=== PATIENT | male | born 1960 | race Caucasian/White ===

== ENCOUNTER 2017-11-08 20:34 | Emergency (ER) | payer MEDICAID, OTHER ==
[~2017-11-08] VITALS: Ht 172.7 cm; Wt 64.0 kg
[~2017-11-08 20:34] MED LIST: BENZ1TAB7 PO; CLON-527 PO; CYCL-394 PO; DIVA-81 PO; NAPR-56 PO; ZIPR80CA2 PO; [UNRECOGNIZED DRUG - CODE] PO
[2017-11-08] MEDS ORDERED: normal saline 1000ml 1,000 ML IV ONE (20:55)
[2017-11-08] MEDS ORDERED: diphenhydrAMINE 50 mg/ml inj IV ONE (21:00)
[2017-11-08] MEDS ORDERED: LORazepam 2 mg/ml vial IV ONE ×2 (21:00→21:45)
[2017-11-08 21:57] LABS: BASOPHILS % (AUTO) 0.3 % (0-1); EOSINOPHILS # (AUTO) 0.1 X10'3 (0-0.9); EOSINOPHILS % (AUTO) 0.7 % (0-6); HEMATOCRIT 38.5 % (42.0-52.0); HEMOGLOBIN 12.9 g/dl (14.0-17.9); LYMPHOCYTES # (AUTO) 2.9 X10'3 (1.1-4.8); LYMPHOCYTES % (AUTO) 26.7 % (21-51); MEAN CORPUSCULAR HEMOGLOBIN 31.6 PG (27.0-31.0); MEAN CORPUSCULAR HGB CONC 33.4 % (33.0-36.5); MEAN CORPUSCULAR VOLUME 94.7 FL (78-98); MEAN PLATELET VOLUME 7.9 FL (7.4-10.4); MONOCYTES % (AUTO) 9.1 % (2-12); NEUTROPHILS # (AUTO) 6.7 X10'3 (1.8-7.7); NEUTROPHILS % (AUTO) 63.2 % (42-75); PLATELET COUNT 189 X10'3 (140-440); RED BLOOD COUNT 4.07 X10'6 (4.70-6.10); RED CELL DISTRIBUTION WIDTH 12.4 % (11.5-14.5); WHITE BLOOD COUNT 10.7 X10'3 (4.5-11.0)
[2017-11-08 22:12] LABS: ALANINE AMINOTRANSFERASE 58 U/L (12-78); ALBUMIN 3.3 G/DL (3.4-5.0); ALBUMIN/GLOBULIN RATIO 0.9 (1.1-1.5); ALKALINE PHOSPHATASE 97 IU/L (46-116); ANION GAP 6 (8-16); ASPARTATE AMINO TRANSFERASE 52 U/L (10-37); BILIRUBIN,TOTAL 0.7 MG/DL (0.1-1.0); BLOOD UREA NITROGEN 19 MG/DL (7-18); BUN/CREATININE RATIO 24.4 (5.4-32.0); CALCIUM 8.2 MG/DL (8.5-10.1); CHLORIDE 108 MMOL/L (99-107); CREATININE 0.78 MG/DL (0.60-1.10); GLUCOSE 93 MG/DL (70-104); POTASSIUM 3.6 MMOL/L (3.5-5.1); SODIUM 143 MMOL/L (135-145); TOTAL CARBON DIOXIDE 29.4 MMOL/L (24-32); TOTAL PROTEIN 6.8 G/DL (6.4-8.2); eGFR > 90 ML/MIN
[2017-11-08 22:51] LABS: CLARITY,URINE Clear (Clear); COLOR,URINE Yellow (Yellow); GLUCOSE, URINE Negative (Neg); KETONES,URINE Trace mg/dl (Neg); LEUKOCYTE ESTERASE ,URINE Negative (Neg); NITRITES, URINE Negative (Neg); OCCULT BLOOD,URINE Negative (Neg); PH,URINE 5.5 (4.8-8.0); PROTEIN,URINE Negative (Neg)
[2017-11-08 23:02] LABS: UA COLLECTION TYPE STRAIGHT CATH
[2017-11-08 23:03] LABS: URINE AMPHETAMINE SCREEN POSITIVE (Neg); URINE BARBITUATE SCREEN NEGATIVE (Neg); URINE BENZODIAZEPINES SCREEN NEGATIVE (Neg); URINE CANNABINOID SCREEN POSITIVE (Neg); URINE COCAINE SCREEN NEGATIVE (Neg); URINE METHADONE SCREEN NEGATIVE (Neg); URINE OPIATE SCREEN POSITIVE (Neg); URINE PHENCYCLIDINE SCREEN NEGATIVE (Neg)
[2017-11-09 01:41] VITALS: BP 112/62
== END 2017-11-09 01:43 | disposition home or self-care (01) ==
LOC: ER 20:34
DX: F19.10 Other psychoactive substance abuse, uncomplicated (principal); G89.29 Other chronic pain; F17.210 Nicotine dependence, cigarettes, uncomplicated; R41.82 Altered mental status, unspecified; Z88.8 Allergy status to other drugs, medicaments and biological substances
CPT/HCPCS: 36415; 70450; 80053; 80305; 81003; 85025; 96361; 96374; 96375; 96376; 99285; A4353; J1200; J2060; J7030; L0172

== ENCOUNTER 2017-11-22 18:23 | Inpatient (IN) | payer MEDICAID, OTHER ==
[~2017-11-22] VITALS: Ht 180.3 cm; Wt 69.4 kg
[2017-11-22] MEDS ORDERED: vancomycin/NS 1 GM ADD-VANTAGE 250 ML IV ONE (21:55)
[2017-11-22] MEDS ORDERED: HYDROmorphone 1 mg/ml syringe IV PRN (21:55)
[2017-11-22] MEDS ORDERED: piperacillin/tazo 3.375gm/50ml 50 ML IV ONE (21:55)
[2017-11-22] MEDS ORDERED: iohexol 300mg/ml 100ml inj. ONE (22:18)
[2017-11-22 22:24] LABS: BASOPHILS % (AUTO) 0.1 % (0-1); EOSINOPHILS # (AUTO) 0.2 X10'3 (0-0.9); EOSINOPHILS % (AUTO) 1.2 % (0-6); HEMOGLOBIN 13.2 g/dl (14.0-17.9); LYMPHOCYTES # (AUTO) 3.6 X10'3 (1.1-4.8); MEAN CORPUSCULAR HEMOGLOBIN 31.4 PG (27.0-31.0); MEAN CORPUSCULAR VOLUME 95.1 FL (78-98); MEAN PLATELET VOLUME 8.4 FL (7.4-10.4); MONOCYTES # (AUTO) 0.9 X10'3 (0-0.9); MONOCYTES % (AUTO) 6.1 % (2-12); NEUTROPHILS # (AUTO) 10.8 X10'3 (1.8-7.7); NEUTROPHILS % (AUTO) 69.6 % (42-75); PLATELET COUNT 250 X10'3 (140-440); RED BLOOD COUNT 4.21 X10'6 (4.70-6.10); RED CELL DISTRIBUTION WIDTH 12.7 % (11.5-14.5); WHITE BLOOD COUNT 15.6 X10'3 (4.5-11.0)
[2017-11-22 22:35] LABS: PARTIAL THROMBOPLASTIN TIME 29 SECONDS (22-32)
[2017-11-22 22:41] LABS: ANION GAP 4 (8-16); BLOOD UREA NITROGEN 18 MG/DL (7-18); BUN/CREATININE RATIO 26.9 (5.4-32.0); CALCIUM 8.4 MG/DL (8.5-10.1); CHLORIDE 103 MMOL/L (99-107); CREATININE 0.67 MG/DL (0.60-1.10); GLUCOSE 122 MG/DL (70-104); POTASSIUM 3.8 MMOL/L (3.5-5.1); SODIUM 136 MMOL/L (135-145); TOTAL CARBON DIOXIDE 28.6 MMOL/L (24-32); eGFR > 90 ML/MIN
[2017-11-22 22:42] LABS: ALANINE AMINOTRANSFERASE 62 U/L (12-78); ALBUMIN 2.9 G/DL (3.4-5.0); ALBUMIN/GLOBULIN RATIO 0.6 (1.1-1.5); ALKALINE PHOSPHATASE 136 IU/L (46-116); ASPARTATE AMINO TRANSFERASE 35 U/L (10-37); BILIRUBIN,TOTAL 0.3 MG/DL (0.1-1.0); TOTAL PROTEIN 7.9 G/DL (6.4-8.2)
[2017-11-22] MEDS ORDERED: NO HOME MEDS (23:54)
[2017-11-23] MEDS ORDERED: acetaminophen 325mg tablet PO PRN ×2 (00:50)
[2017-11-23] MEDS ORDERED: mag hydrox/Alum hydrox/simeth 30ml oral suspension PO PRN (00:50)
[2017-11-23] MEDS ORDERED: ondansetron/PF 4mg/2ml inj IV PRN (00:50)
[2017-11-23 02:00] VITALS: BP 124/66
[2017-11-23] MEDS: normal saline 1000ml 1,000 ML IV SCH ×2 (03:20→20:38)
[2017-11-23] MEDS ORDERED: piperacillin/tazo 3.375gm/50ml 50 ML IV ONE (04:43)
[2017-11-23] MEDS: piperacillin/tazo 3.375gm/50ml 50 ML IV SCH ×3 (04:52→20:35)
[2017-11-23 05:00] VITALS: BP 108/54
[2017-11-23 05:29] LABS: CLARITY,URINE CLEAR (Clear); COLOR,URINE YELLOW (Yellow); GLUCOSE, URINE NEGATIVE (Neg); KETONES,URINE NEGATIVE (Neg); LEUKOCYTE ESTERASE ,URINE NEGATIVE (Neg); NITRITES, URINE NEGATIVE (Neg); OCCULT BLOOD,URINE SMALL (Neg); PROTEIN,URINE NEGATIVE (Neg); UROBILINOGEN,URINE 0.2 E.U/dL (0.2-1.0)
[2017-11-23 05:33] LABS: UA COLLECTION TYPE CLN CATCH MIDSTREAM
[2017-11-23 05:34] LABS: BACTERIA,URINE FEW /HPF (Neg); SQUAMOUS EPITHELIAL CELL,UR FEW /LPF (FEW); WBC,URINE NONE SEEN /HPF (0-4)
[2017-11-23] MEDS: vancomycin/NS 1 GM ADD-VANTAGE 250 ML IV SCH ×2 (09:29→18:57)
[2017-11-23 10:00] VITALS: BP 123/74
[2017-11-23 10:36] LABS: BASOPHILS # (AUTO) 0.1 X10'3 (0-0.2); BASOPHILS % (AUTO) 0.5 % (0-1); EOSINOPHILS # (AUTO) 0.2 X10'3 (0-0.9); EOSINOPHILS % (AUTO) 1.9 % (0-6); HEMATOCRIT 38.3 % (42.0-52.0); HEMOGLOBIN 12.9 g/dl (14.0-17.9); LYMPHOCYTES # (AUTO) 2.9 X10'3 (1.1-4.8); LYMPHOCYTES % (AUTO) 24.7 % (21-51); MEAN CORPUSCULAR HEMOGLOBIN 31.5 PG (27.0-31.0); MEAN CORPUSCULAR HGB CONC 33.6 % (33.0-36.5); MEAN CORPUSCULAR VOLUME 93.8 FL (78-98); MEAN PLATELET VOLUME 7.9 FL (7.4-10.4); MONOCYTES % (AUTO) 8.2 % (2-12); NEUTROPHILS # (AUTO) 7.6 X10'3 (1.8-7.7); NEUTROPHILS % (AUTO) 64.7 % (42-75); PLATELET COUNT 251 X10'3 (140-440); RED BLOOD COUNT 4.08 X10'6 (4.70-6.10); RED CELL DISTRIBUTION WIDTH 12.8 % (11.5-14.5); WHITE BLOOD COUNT 11.8 X10'3 (4.5-11.0)
[2017-11-23] MEDS ORDERED: cefTRIAXone 1g/NS 100ml IVPB 100 ML IV SCH (15:50)
[2017-11-23 18:30] VITALS: BP 105/80
[2017-11-23] MEDS ORDERED: piperacillin/tazo 3.375gm/50ml 50 ML IV SCH (19:09)
[2017-11-23] MEDS: cefTRIAXone 1g/NS 100ml IVPB 100 ML IV SCH (21:40)
[2017-11-23 22:00] VITALS: BP 111/55
[2017-11-24] MEDS: vancomycin/NS 1 GM ADD-VANTAGE 250 ML IV SCH ×4 (00:49→23:13)
[2017-11-24] MEDS: piperacillin/tazo 3.375gm/50ml 50 ML IV SCH ×4 (02:28→19:41)
[2017-11-24 05:00] VITALS: BP 117/72
[2017-11-24] MEDS ORDERED: VANCOMYCIN LEVEL IV NR (06:30)
[2017-11-24] MEDS: normal saline 1000ml 1,000 ML IV SCH ×2 (06:47→11:45)
[2017-11-24 06:58] LABS: BASOPHILS % (AUTO) 0.2 % (0-1); EOSINOPHILS # (AUTO) 0.1 X10'3 (0-0.9); EOSINOPHILS % (AUTO) 1.4 % (0-6); HEMATOCRIT 35.4 % (42.0-52.0); HEMOGLOBIN 11.6 g/dl (14.0-17.9); LYMPHOCYTES # (AUTO) 2.9 X10'3 (1.1-4.8); LYMPHOCYTES % (AUTO) 27.1 % (21-51); MEAN CORPUSCULAR HEMOGLOBIN 30.9 PG (27.0-31.0); MEAN CORPUSCULAR HGB CONC 32.7 % (33.0-36.5); MEAN CORPUSCULAR VOLUME 94.5 FL (78-98); MEAN PLATELET VOLUME 8.3 FL (7.4-10.4); MONOCYTES # (AUTO) 0.9 X10'3 (0-0.9); MONOCYTES % (AUTO) 8.9 % (2-12); NEUTROPHILS # (AUTO) 6.6 X10'3 (1.8-7.7); NEUTROPHILS % (AUTO) 62.4 % (42-75); PLATELET COUNT 214 X10'3 (140-440); RED BLOOD COUNT 3.74 X10'6 (4.70-6.10); RED CELL DISTRIBUTION WIDTH 12.9 % (11.5-14.5); WHITE BLOOD COUNT 10.6 X10'3 (4.5-11.0)
[2017-11-24 07:09] LABS: ALBUMIN 2.1 G/DL (3.4-5.0); ANION GAP 8 (8-16); BLOOD UREA NITROGEN 8 MG/DL (7-18); BUN/CREATININE RATIO 11.3 (5.4-32.0); CALCIUM 7.8 MG/DL (8.5-10.1); CHLORIDE 109 MMOL/L (99-107); CREATININE 0.71 MG/DL (0.60-1.10); GLUCOSE 118 MG/DL (70-104); POTASSIUM 3.9 MMOL/L (3.5-5.1); SODIUM 143 MMOL/L (135-145); TOTAL CARBON DIOXIDE 25.8 MMOL/L (24-32); eGFR > 90 ML/MIN
[2017-11-24] MEDS: LACTOBACILLUS RHAMNOSUS GG 15 billion unit sprinkle caps PO SCH (07:45)
[2017-11-24 10:00] VITALS: BP 132/75
[2017-11-24] MEDS: magnesium hydroxide 30ml (MOM) UD suspension PO PRN (11:48)
[2017-11-24 18:30] VITALS: BP 128/95
[2017-11-24] MEDS ORDERED: LORazepam 2 mg/ml vial IV ONE (20:45)
[2017-11-24] MEDS: cefTRIAXone 1g/NS 100ml IVPB 100 ML IV SCH (21:06)
[2017-11-24 22:00] VITALS: BP 114/70
[2017-11-25] MEDS: piperacillin/tazo 3.375gm/50ml 50 ML IV SCH ×3 (02:10→14:07)
[2017-11-25] MEDS: normal saline 1000ml 1,000 ML IV SCH ×3 (02:10→22:37)
[2017-11-25 05:24] LABS: BASOPHILS % (AUTO) 0.3 % (0-1); EOSINOPHILS # (AUTO) 0.2 X10'3 (0-0.9); EOSINOPHILS % (AUTO) 1.9 % (0-6); HEMATOCRIT 36.1 % (42.0-52.0); HEMOGLOBIN 12.1 g/dl (14.0-17.9); LYMPHOCYTES # (AUTO) 3.9 X10'3 (1.1-4.8); LYMPHOCYTES % (AUTO) 37.7 % (21-51); MEAN CORPUSCULAR HEMOGLOBIN 31.6 PG (27.0-31.0); MEAN CORPUSCULAR HGB CONC 33.5 % (33.0-36.5); MEAN CORPUSCULAR VOLUME 94.4 FL (78-98); MEAN PLATELET VOLUME 8.5 FL (7.4-10.4); NEUTROPHILS # (AUTO) 5.2 X10'3 (1.8-7.7); NEUTROPHILS % (AUTO) 50.1 % (42-75); PLATELET COUNT 243 X10'3 (140-440); RED BLOOD COUNT 3.83 X10'6 (4.70-6.10); RED CELL DISTRIBUTION WIDTH 12.9 % (11.5-14.5); WHITE BLOOD COUNT 10.4 X10'3 (4.5-11.0)
[2017-11-25 05:46] LABS: ALBUMIN 2.2 G/DL (3.4-5.0); ANION GAP 7 (8-16); BLOOD UREA NITROGEN 14 MG/DL (7-18); BUN/CREATININE RATIO 18.4 (5.4-32.0); CALCIUM 8.4 MG/DL (8.5-10.1); CHLORIDE 106 MMOL/L (99-107); CREATININE 0.76 MG/DL (0.60-1.10); GLUCOSE 124 MG/DL (70-104); POTASSIUM 4.4 MMOL/L (3.5-5.1); SODIUM 139 MMOL/L (135-145); TOTAL CARBON DIOXIDE 26.4 MMOL/L (24-32); eGFR > 90 ML/MIN
[2017-11-25 06:00] VITALS: BP 141/80
[2017-11-25] MEDS: vancomycin/NS 1 GM ADD-VANTAGE 250 ML IV SCH ×3 (06:54→22:37)
[2017-11-25] MEDS: LACTOBACILLUS RHAMNOSUS GG 15 billion unit sprinkle caps PO SCH (06:55)
[2017-11-25 11:00] VITALS: BP 126/77
[2017-11-25] MEDS: LORazepam 0.5 MG tablet PO PRN ×2 (14:07→20:10)
[2017-11-25 18:30] VITALS: BP 125/89
[2017-11-25] MEDS: magnesium hydroxide 30ml (MOM) UD suspension PO PRN (20:10)
[2017-11-26 06:51] LABS: BASOPHILS % (AUTO) 0.3 % (0-1); EOSINOPHILS # (AUTO) 0.2 X10'3 (0-0.9); EOSINOPHILS % (AUTO) 2.4 % (0-6); HEMOGLOBIN 12.5 g/dl (14.0-17.9); LYMPHOCYTES # (AUTO) 3.3 X10'3 (1.1-4.8); LYMPHOCYTES % (AUTO) 36.2 % (21-51); MEAN CORPUSCULAR HEMOGLOBIN 31.7 PG (27.0-31.0); MEAN CORPUSCULAR HGB CONC 33.8 % (33.0-36.5); MEAN CORPUSCULAR VOLUME 93.9 FL (78-98); MEAN PLATELET VOLUME 8.8 FL (7.4-10.4); MONOCYTES # (AUTO) 0.9 X10'3 (0-0.9); MONOCYTES % (AUTO) 10.4 % (2-12); NEUTROPHILS # (AUTO) 4.6 X10'3 (1.8-7.7); NEUTROPHILS % (AUTO) 50.7 % (42-75); PLATELET COUNT 241 X10'3 (140-440); RED BLOOD COUNT 3.94 X10'6 (4.70-6.10); RED CELL DISTRIBUTION WIDTH 12.9 % (11.5-14.5); WHITE BLOOD COUNT 9.1 X10'3 (4.5-11.0)
[2017-11-26 07:02] LABS: ALBUMIN 2.4 G/DL (3.4-5.0); ANION GAP 6 (8-16); BLOOD UREA NITROGEN 18 MG/DL (7-18); BUN/CREATININE RATIO 22.5 (5.4-32.0); CALCIUM 8.5 MG/DL (8.5-10.1); CHLORIDE 105 MMOL/L (99-107); GLUCOSE 108 MG/DL (70-104); POTASSIUM 4.4 MMOL/L (3.5-5.1); SODIUM 139 MMOL/L (135-145); TOTAL CARBON DIOXIDE 27.7 MMOL/L (24-32); eGFR > 90 ML/MIN
[2017-11-26 07:10] VITALS: BP 123/80
[2017-11-26] MEDS: magnesium hydroxide 30ml (MOM) UD suspension PO PRN (07:30)
[2017-11-26] MEDS: LACTOBACILLUS RHAMNOSUS GG 15 billion unit sprinkle caps PO SCH (07:30)
[2017-11-26] MEDS: vancomycin/NS 1 GM ADD-VANTAGE 250 ML IV SCH (07:30)
[2017-11-26] MEDS: LORazepam 0.5 MG tablet PO PRN (07:32)
[2017-11-26] MEDS: clindamycin 150mg capsule PO SCH ×2 (08:00→09:51)
[2017-11-26] MEDS: normal saline 1000ml 1,000 ML IV SCH (08:47)
[2017-11-26 11:00] VITALS: BP 121/65
[2017-11-26] MEDS ORDERED: CLE150C PO (11:36)
== END 2017-11-26 14:21 | disposition home or self-care (01) | DRG 872 ==
LOC: ER 18:24 → ED HOLD 11-23 00:47 → ORTHO 4S 11-23 01:46
PROVIDERS: ADMIT Internal Medicine; ATTEND Internal Medicine
PROC: BP2U1ZZ Computerized Tomography (CT Scan) of Left Upper Extremity using Low Osmolar Contrast (ICD-10-PCS; principal; 2017-11-22)
DX: A41.9 Sepsis, unspecified organism (principal); F20.9 Schizophrenia, unspecified; L03.114 Cellulitis of left upper limb; L02.512 Cutaneous abscess of left hand; F15.90 Other stimulant use, unspecified, uncomplicated; F19.10 Other psychoactive substance abuse, uncomplicated; A49.01 Methicillin susceptible Staphylococcus aureus infection, unspecified site; G89.29 Other chronic pain; M54.9 Dorsalgia, unspecified; D64.9 Anemia, unspecified; Z88.8 Allergy status to other drugs, medicaments and biological substances; Z59.0 Homelessness; Z79.899 Other long term (current) drug therapy; Z79.01 Long term (current) use of anticoagulants
CPT/HCPCS: 36415; 73201; 80048; 80053; 80202; 81001; 83605; 83735; 84145; 85025; 85610; 85730; 86885; 86900; 86901; 87040; 87070; 87077; 87186; 96365; 96367; 99285; A6222; A6224; A6446; A6449; J0696; J2060; J2543; J3370; J7030; Q9967